=== PATIENT | female | born 1995 ===

== ENCOUNTER 2017-03-04 22:42 | Emergency (ER) | payer MEDICAID, OTHER ==
[~2017-03-04] VITALS: Ht 175.3 cm; Wt 55.0 kg
[2017-03-04 22:46] VITALS: BP 122/70; PULSE 86; RESP 15; TEMP 98.6; O2SAT 98
[2017-03-04] MEDS ORDERED: BACT800T5 PO (23:15)
[2017-03-04] MEDS ORDERED: SULFAMETHOXAZOLE-TRIMETHOPRIM DS 800-160 MG TAB PO ONE (23:15)
[2017-03-04] MEDS ORDERED: DICL50TA3 PO (23:15)
--- NOTE | 2017-03-04 23:23 | PD ---
HPI Chief Complaint: Skin Problem Time Seen by Provider: 23:01 Travel History International Travel<30 days: No Contact w/Intl Traveler<30days: No Traveled to known affect area: No History of Present Illness HPI 21-year-old black female presents to emergency department with a five-day history of a developing abscess to her right buttocks. She states that she's had these in the past. It has become tender and swollen. Small amount of discharge. No alleviating factors. No exacerbating activity. Pain is mild. PFSH Past Medical History Medical History: Denies Significant Hx Diminished Hearing: No Tetanus Vaccination: < 5 Years ?: Not LMP: 02/24/2017 Past Surgical History Surgical History: No Previous Surgery Social History Alcohol Use: No Tobacco Use: No Substance Use: No Allergies-Medications (Allergen,Severity, Reaction): Coded Allergies: No Known Allergies (Unverified , 03/04/17) Reported Meds & Prescriptions Reported Meds & Active Scripts Active No Active Prescriptions or Reported Medications Review of Systems General / Constitutional: No: Fever Eyes: No: Visual changes HENT: No: Headaches Cardiovascular: No: Chest Pain or Discomfort Respiratory: No: Shortness of Breath Gastrointestinal: No: Abdominal Pain Genitourinary: No: Dysuria Musculoskeletal: No: Pain Skin: Positive Rash, Positive Lesions Neurologic: No: Weakness Psychiatric: No: Depression Endocrine: No: Polydipsia Hematologic/Lymphatic: No: Easy Bruising Physical Exam Narrative GENERAL: This is a well-nourished, well-developed patient, in no apparent distress. Patient's exam with Olivia present SKIN: Patient has a 2 x 2 area of erythema, warmth and induration to the right buttocks. There is a small open area with purulent drainage. No fluctuance or pointing., ecchymoses or lesions. Warm and dry. HEAD: Atraumatic. Normocephalic. EYES: PERRL, EOMI, no discharge or injection. No scleral icterus. EARS: Clear NOSE: Nasal turbinates appear normal. THROAT: Mucosa pink and moist. Airway patent. NECK: Trachea midline. supple, moves head freely. LUNGS: Clear to auscultation. CV: Regular in rhythm. ABDOMEN: Soft nontender. EXT: No clubbing cyanosis or edema. Data Data Last Documented VS Vital Signs Date Time Temp Pulse Resp B/P (MAP) Pulse Ox O2 Delivery O2 Flow Rate FiO2 03/04/17 22:46 98.6 86 15 122/70 (87) 98 Room Air Orders Orders Ed Discharge Order (03/04/17 23:13) Sulfamet-Trimeth Ds 800-160 Mg (Bactrim (03/04/17 23:15) MDM Medical Decision Making Medical Screen Exam Complete: Yes Emergency Medical Condition: Yes Medical Record Reviewed: Yes Differential Diagnosis MDM: High Differential diagnoses: Abscess, folliculitis, cellulitis, lymphangitis, abrasion, contact dermatitis Narrative Course Patient has an open draining abscess to her right buttocks. Patient given Bactrim DS by mouth here in the ER. Diagnosis Primary Impression: Abscess of right buttock Patient Instructions: General Instructions Additional Instructions: Rest. Elevation. keep clean and dry. Sits baths 3 times daily Bactrim DS and diclofenac Follow-up with a primary care doctor in one week. Return to the ER for any problems. Med/Other Pt SpecificInfo: Prescription(s) given, Wound Care Scripts Diclofenac Sodium DR (Diclofenac Sodium DR) 50 Mg Tabdr 50 MG PO TID, #21 TAB 0 Refills Prov: Peter Gonzales MD 03/04/17 Sulfamethoxazole-Trimethoprim (Bactrim DS) 800-160 Mg Tab 1 TAB PO BID for Infection, #20 TAB 0 Refills Prov: Peter Gonzales MD 03/04/17 Disposition: 01 DISCHARGE HOME Condition: Stable Benny Ramos Mar 04, 2017 23:23
== END 2017-03-04 23:28 | disposition home or self-care (01) ==
LOC: NEPD 22:42
DX: L02.31 Cutaneous abscess of buttock (principal)
CPT/HCPCS: 99283